=== PATIENT | male | born 1960 | race Caucasian/White ===

== ENCOUNTER 2017-12-23 07:19 | Emergency (ER) | payer OTHER ==
[2017-12-23] MEDS: methylPREDNISolone INJ 125 MG/2 ML VIAL (J2930) IM (07:51)
[2017-12-23] MEDS: ALBUTEROL SULFATE 2.5 MG/0.5 ML INH NEB SOLN NEB ×2 (07:56→07:57)
== END 2017-12-23 08:39 | disposition home or self-care (01) ==
LOC: M ED 07:19
DX: J06.9 Acute upper respiratory infection, unspecified (principal); Z91.040 Latex allergy status; Z88.8 Allergy status to other drugs, medicaments and biological substances; Z88.0 Allergy status to penicillin; Z88.2 Allergy status to sulfonamides
CPT/HCPCS: J2930

== ENCOUNTER 2018-01-06 21:18 | Inpatient (IN) | payer OTHER ==
[2018-01-06] MEDS: ALBUTEROL SULFATE 2.5 MG/0.5 ML INH NEB SOLN NEB ×2 (23:07→23:40)
[2018-01-07] MEDS: methylPREDNISolone INJ 125 MG/2 ML VIAL (J2930) IV (00:37)
[2018-01-07] MEDS: ALBUTEROL SULFATE 2.5 MG/0.5 ML INH NEB SOLN NEB (00:37)
[2018-01-07] MEDS: diphenhydrAMINE INJ 50MG/ML VIAL (J1200) IV (00:38)
[2018-01-07] MEDS ORDERED: PERCOCET 5MG/325MG TAB PO (03:15)
[2018-01-07] MEDS ORDERED: ONDANSETRON 4MG/2ML VIAL (J2405) IV (03:15)
[2018-01-07] MEDS ORDERED: BISACODYL 10 MG SUPP PR (03:15)
[2018-01-07] MEDS ORDERED: MORPHINE 4 MG/ML 1ML VIAL/SYRINGE (J2270) IV (03:15)
[2018-01-07] MEDS ORDERED: ACETAMINOPHEN TAB 650MG DOSE (2X325MG) PO (03:15)
[2018-01-07 05:01] LABS: HEMATOCRIT 44.5 % (42.0-52.0); HEMOGLOBIN 15.2 g/dl (13.5-17.5); MEAN CORPUSCULAR HEMOGLOBIN 29.9 pg (27.0-33.0); MEAN CORPUSCULAR HGB CONC 34.2 g/dl (32.0-36.5); MEAN CORPUSCULAR VOLUME 87.6 fl (80.0-96.0); PLATELET COUNT, AUTOMATED 256 10^3/uL (150-450); RED BLOOD COUNT 5.08 10^6/uL (4.30-6.10); RED CELL DISTRIBUTION WIDTH 12.7 % (11.5-14.5); WHITE BLOOD COUNT 11.4 10^3/uL (4.0-10.0)
[2018-01-07] MEDS: NS 1,000 ML IV ×3 (05:16→23:01)
[2018-01-07] MEDS: HEPARIN SOD (PORCINE) 5000 UNITS/ML VIAL SC ×3 (05:17→21:19)
[2018-01-07 05:20] LABS: ANION GAP 9 MEQ/L (8-16); BLOOD UREA NITROGEN 13 MG/DL (7-18); CALCIUM LEVEL 8.4 MG/DL (8.5-10.1); CARBON DIOXIDE LEVEL 24 MEQ/L (21-32); CHLORIDE LEVEL 110 MEQ/L (98-107); CREATININE FOR GFR 0.88 MG/DL (0.70-1.30); GLOMERULAR FILTRATION RATE > 60.0 (>56); GLUCOSE, FASTING 137 MG/DL (70-100); MAGNESIUM LEVEL 2.3 MG/DL (1.8-2.4); POTASSIUM SERUM 3.7 MEQ/L (3.5-5.1); SODIUM LEVEL 143 MEQ/L (136-145)
[2018-01-07 05:23] LABS: CK-MB VALUE MASS 4.1 NG/ML (<3.6); CPK CREATINE PHOSPHOKINASE 254 U/L (39-308); MB/CK RELATIVE INDEX 1.61 (< OR =4); TROPONIN I < 0.02 NG/ML (< 0.10)
[2018-01-07] MEDS ORDERED: IPRATROPIUM 0.5MG/ALBUTEROL 2.5MG INH SOL UD 3ML (DUONEB)(J7620) NEB (06:45)
[2018-01-07] MEDS: methylPREDNISolone INJ 40 MG/1 ML VIAL (J2920) IV ×3 (08:30→23:45)
[2018-01-07] MEDS: SENOKOT S TAB PO ×2 (08:30→21:18)
[2018-01-07] MEDS: PANTOPRAZOLE 40MG TAB (PROTONIX) PO (08:30)
[2018-01-07 09:18] LABS: TROPONIN I < 0.02 NG/ML (< 0.10)
[2018-01-07 09:27] LABS: D-DIMER QUANT < 270.0 ng/ml (<500)
[2018-01-07 12:29] LABS: TROPONIN I < 0.02 NG/ML (< 0.10)
[2018-01-07 12:30] LABS: CK-MB VALUE MASS 3.3 NG/ML (<3.6); CPK CREATINE PHOSPHOKINASE 221 U/L (39-308); MB/CK RELATIVE INDEX 1.49 (< OR =4)
[2018-01-07 20:05] LABS: CPK CREATINE PHOSPHOKINASE 180 U/L (39-308); TROPONIN I < 0.02 NG/ML (< 0.10)
[2018-01-07 20:18] LABS: CK-MB VALUE MASS 2.4 NG/ML (<3.6); MB/CK RELATIVE INDEX 1.33 (< OR =4)
[2018-01-08] MEDS: NS 1,000 ML IV ×2 (03:53→09:04)
[2018-01-08] MEDS: HEPARIN SOD (PORCINE) 5000 UNITS/ML VIAL SC (05:45)
[2018-01-08 06:22] LABS: HEMATOCRIT 42.1 % (42.0-52.0); HEMOGLOBIN 14.2 g/dl (13.5-17.5); MEAN CORPUSCULAR HGB CONC 33.7 g/dl (32.0-36.5); MEAN CORPUSCULAR VOLUME 88.8 fl (80.0-96.0); PLATELET COUNT, AUTOMATED 260 10^3/uL (150-450); RED BLOOD COUNT 4.74 10^6/uL (4.30-6.10); RED CELL DISTRIBUTION WIDTH 13.1 % (11.5-14.5); WHITE BLOOD COUNT 17.5 10^3/uL (4.0-10.0)
[2018-01-08 06:45] LABS: ANION GAP 7 MEQ/L (8-16); BLOOD UREA NITROGEN 15 MG/DL (7-18); CALCIUM LEVEL 8.5 MG/DL (8.5-10.1); CARBON DIOXIDE LEVEL 25 MEQ/L (21-32); CHLORIDE LEVEL 112 MEQ/L (98-107); CREATININE FOR GFR 0.78 MG/DL (0.70-1.30); GLOMERULAR FILTRATION RATE > 60.0 (>56); GLUCOSE, FASTING 115 MG/DL (70-100); MAGNESIUM LEVEL 2.3 MG/DL (1.8-2.4); POTASSIUM SERUM 4.3 MEQ/L (3.5-5.1); SODIUM LEVEL 144 MEQ/L (136-145)
[2018-01-08] MEDS: SENOKOT S TAB PO (09:04)
[2018-01-08] MEDS: methylPREDNISolone INJ 40 MG/1 ML VIAL (J2920) IV (09:04)
[2018-01-08] MEDS: PANTOPRAZOLE 40MG TAB (PROTONIX) PO (09:04)
[2018-01-11 03:02] LABS: PROCALCITONIN 0.05 ng/mL (0.00-0.08)
[2018-01-11 03:02] LABS: PROCALCITONIN 0.05 ng/mL (0.00-0.08)
== END 2018-01-08 11:00 | disposition home or self-care (01) | DRG 203 ==
LOC: M ED INP 01-07 03:01 → M MSPAV 01-07 04:40 → M ED 21:18
DX: J45.901 Unspecified asthma with (acute) exacerbation (principal); Z79.899 Other long term (current) drug therapy; Z88.0 Allergy status to penicillin; Z88.2 Allergy status to sulfonamides; Z88.8 Allergy status to other drugs, medicaments and biological substances; Z91.040 Latex allergy status

== ENCOUNTER → 2018-05-09 | Outpatient (CLI) | payer OTHER ==
[~2018-05-09] MED LIST: METHACHOLINE KIT (J7674) INH
== END ==
LOC: M CARPUL 07:33
DX: R05 Cough (principal)
CPT/HCPCS: J7674

== ENCOUNTER → 2018-07-09 | Outpatient (CLI) | payer OTHER ==
[2018-07-14 00:06] LABS: D001-IgE D pteronyssinus <0.10 kU/L (Class 0); E001-IgE Cat Epith/Dander < 0.10 kU/L (Class 0); E005-IgE Dog Dander < 0.10 kU/L (Class 0); G002-IgE Bermuda Grass < 0.10 kU/L (Class 0); G008-IgE Kentucky Bluegrass < 0.10 kU/L (Class 0); M001-IgE Penicillium chrysogen < 0.10 kU/L (Class 0); M002 IgE Cladosporium herbaru < 0.10 kU/L (Class 0); M003 IgE Aspergillus fumigatu < 0.10 kU/L (Class 0); M006-IgE Alternaria alternata < 0.10 kU/L (Class 0); T001-IgE Maple/Box Elder < 0.10 kU/L (Class 0); T003-IgE Common Silver Birch 0.53 kU/L (Class I); T006-IgE Cedar, Mountain < 0.10 kU/L (Class 0); T007-IgE Oak, White < 0.10 kU/L (Class 0); T008-IgE Elm, American < 0.10 kU/L (Class 0); T015-IgE Ash, White < 0.10 kU/L (Class 0); T041-IgE Hickory, White < 0.10 kU/L (Class 0); T070-IgE White Mulberry < 0.10 kU/L (Class 0); W001-IgE Ragweed, Short < 0.10 kU/L (Class 0); W009-IgE Plantain, English < 0.10 kU/L (Class 0); W014-IgE Pigweed, Rough < 0.10 kU/L (Class 0); W018-IgE Sheep Sorrel < 0.10 kU/L (Class 0)
== END ==
LOC: M SMT 14:51
DX: J45.21 Mild intermittent asthma with (acute) exacerbation (principal)
CPT/HCPCS: 82785

== ENCOUNTER → 2018-07-10 | Outpatient (REF) | payer OTHER ==
[2018-07-10 17:59] LABS: BASO # 0.1 10^3/uL (0.0-0.2); BASO % 1.3 % (0.0-1.0); EOS # 0.9 10^3/uL (0.0-0.50); EOS % 8.8 % (0.0-3.0); HEMATOCRIT 46.5 % (42.0-52.0); HEMOGLOBIN 15.4 g/dl (13.5-17.5); IMMATURE GRANULOCYTE % 0.6 % (0-3.0); LYMPH # 2.9 10^3/uL (1.5-4.5); LYMPH % 27.1 % (24.0-44.0); MEAN CORPUSCULAR HGB CONC 33.1 g/dl (32.0-36.5); MEAN CORPUSCULAR VOLUME 90.5 fl (80.0-96.0); MONO # 0.6 10^3/uL (0.0-0.8); MONO % 5.9 % (0.0-5.0); NEUTROPHILS % 56.3 % (36.0-66.0); PLATELET COUNT, AUTOMATED 279 10^3/uL (150-450); RED BLOOD COUNT 5.14 10^6/uL (4.30-6.10); RED CELL DISTRIBUTION WIDTH 12.7 % (11.5-14.5); WHITE BLOOD COUNT 10.6 10^3/uL (4.0-10.0)
== END ==
LOC: M LABSMT 17:00
DX: J45.21 Mild intermittent asthma with (acute) exacerbation (principal)
CPT/HCPCS: 85025

== ENCOUNTER 2018-08-27 12:39 | Emergency (ER) | payer OTHER ==
[~2018-08-27] VITALS: Ht 175.3 cm; Wt 95.5 kg
[~2018-08-27 12:39] MED LIST changes: +GUAISYP4 PO; +GUAISYP9 PO; -METHACHOLINE KIT (J7674) INH; +MUCI600T37 PO; +PRED10TA2 PO; +PRED20TA PO; +PROAAER10 INH; +TESS100C PO; +ZITHTAB PO; +pro air
[2018-08-27] MEDS ORDERED: VENTAER (12:54)
[2018-08-27] MEDS ORDERED: FLUT22IN (12:54)
[2018-08-27 14:46] LABS: BASO # 0.1 10^3/uL (0.0-0.2); BASO % 1.2 % (0.0-1.0); EOS # 0.4 10^3/uL (0.0-0.50); EOS % 3.4 % (0.0-3.0); HEMATOCRIT 46.5 % (42.0-52.0); LYMPH # 2.9 10^3/uL (1.5-4.5); LYMPH % 24.2 % (24.0-44.0); MEAN CORPUSCULAR HEMOGLOBIN 30.4 pg (27.0-33.0); MEAN CORPUSCULAR HGB CONC 34.4 g/dl (32.0-36.5); MEAN CORPUSCULAR VOLUME 88.4 fl (80.0-96.0); MONO # 0.7 10^3/uL (0.0-0.8); MONO % 5.7 % (0.0-5.0); NEUTROPHILS # 7.8 10^3/uL (1.8-7.7); NEUTROPHILS % 64.9 % (36.0-66.0); PLATELET COUNT, AUTOMATED 310 10^3/uL (150-450); RED BLOOD COUNT 5.26 10^6/uL (4.30-6.10); WHITE BLOOD COUNT 12.1 10^3/uL (4.0-10.0)
[2018-08-27 14:58] LABS: BLOOD UREA NITROGEN 11 MG/DL (7-18); CALCIUM LEVEL 9.1 MG/DL (8.5-10.1); CARBON DIOXIDE LEVEL 27 MEQ/L (21-32); CHLORIDE LEVEL 105 MEQ/L (98-107); CREATININE FOR GFR 0.74 MG/DL (0.70-1.30); GLOMERULAR FILTRATION RATE > 60.0 (>56); GLUCOSE, FASTING 86 MG/DL (70-100); POTASSIUM SERUM 4.2 MEQ/L (3.5-5.1); SODIUM LEVEL 140 MEQ/L (136-145)
[2018-08-27 14:59] LABS: INR 0.93; PROTHROMBIN TIME 12.6 SECONDS (12.1-14.4)
[2018-08-27 15:00] LABS: PARTIAL THROMBOPLASTIN TIME 29.5 SECONDS (25.4-37.6)
[2018-08-27 15:02] LABS: D-DIMER QUANT 270.29 ng/ml (<500)
[2018-08-27] MEDS ORDERED: ISOVUE-370 76% 100ML VIAL (Q9967) As Ordered ONE (15:28)
--- NOTE | 2018-08-27 16:25 | REP ---
CT pulmonary angiogram: With IV contrast. History: Coughing up blood. Comparison studies: February 21, 2012. Contrast dose: 75 mL of Isovue [address] technique: Helical scanning is acquired and overlapping 1.5 mm and contiguous 3 mm axial images are reformatted. In addition, maximum intensity projection and multiplanar re-formation images are generated in sagittal and coronal imaging projections. CT pulmonary angiographic findings: There is good opacification of the pulmonary arterial tree. There is no CT evidence of pulmonary embolism. Thoracic aorta enhances homogeneously without evidence of aneurysm or dissection. There are granulomatous lymph node calcifications in the right hilus and a granulomatous calcification is noted in the right lower lobe of the lung. No pleural or pericardial effusion is seen. No hilar or mediastinal mass or adenopathy is observed. No adrenal lesion is seen. There are granulomatous calcifications in the spleen. There is a 2.4 cm ground-glass opacity in the right upper lobe. This measures 1.6 x 1.5 cm in its other dimensions. This is a new finding. No other infiltrate is seen in the lung matthews. No other noncalcified nodule is seen. There is discoid atelectasis in the lingula at the left lung base. No bony destructive lesion is seen. Impression: Oval-shaped 2.4 cm area of ground glass opacity right upper lobe. Focal infiltrate versus neoplastic lesion. No CT evidence of pulmonary embolus. Suggest short interval follow-up. If persists post treatment, pulmonary medicine evaluation would be warranted. Electronically Signed by Abdirashid Wright MD 08/27/2018 06:16 P
[2018-08-27] MEDS ORDERED: AZIT-12 PO (16:41)
[2018-08-27] MEDS ORDERED: AZITHROMYCIN 250 MG TAB PO ONE (16:45)
[2018-08-27 17:10] VITALS: BP 143/82
--- NOTE | 2018-08-28 11:46 | ED PDOC ---
Post-Departure Follow-Up kassidy lopes and ilana faxed formal report of ct chest for fu Kian Tyson MD Aug 28, 2018 11:46
== END 2018-08-27 17:21 | disposition home or self-care (01) ==
LOC: M ED 12:39
DX: J18.9 Pneumonia, unspecified organism (principal); R91.8 Other nonspecific abnormal finding of lung field; J01.90 Acute sinusitis, unspecified; J45.909 Unspecified asthma, uncomplicated; Z79.51 Long term (current) use of inhaled steroids; Z88.8 Allergy status to other drugs, medicaments and biological substances; Z91.040 Latex allergy status; Z88.0 Allergy status to penicillin
CPT/HCPCS: 71275; 80048; 85025; 85379; 85610; 85730; 86850; 86900; 86901; 99284; Q9967

== ENCOUNTER → 2018-11-24 | Outpatient (CLI) | payer OTHER ==
[~2018-11-24] MED LIST changes: +AZIT-12 PO; +FLUT22IN; +VENTAER
== END ==
LOC: M ADAMS 08:28
PROVIDERS: ATTEND Physician Assistant
DX: Z12.5 Encounter for screening for malignant neoplasm of prostate (principal); Z13.220 Encounter for screening for lipoid disorders

== ENCOUNTER → 2018-11-24 | Outpatient (REF) | payer OTHER ==
[2018-11-24 17:47] LABS: ALBUMIN 4.1 GM/DL (3.2-5.2); ALT/SGPT 40 U/L (12-78); BILIRUBIN,TOTAL 0.7 MG/DL (0.2-1.0); BLOOD UREA NITROGEN 13 MG/DL (7-18); CALCIUM LEVEL 8.3 MG/DL (8.5-10.1); CARBON DIOXIDE LEVEL 30 MEQ/L (21-32); CHLORIDE LEVEL 107 MEQ/L (98-107); CHOLESTEROL LEVEL 215 MG/DL (<200); CHOLESTEROL RISK RATIO 3.839 (<5); CREATININE FOR GFR 0.86 MG/DL (0.70-1.30); GLOMERULAR FILTRATION RATE > 60.0 (>56); GLUCOSE, FASTING 79 MG/DL (70-100); HDL CHOLESTEROL 56 MG/DL (>40); LDL CHOLESTEROL 139 MG/DL (<100); NON-HDL-C 159 MG/DL; POTASSIUM SERUM 4.4 MEQ/L (3.5-5.1); SODIUM LEVEL 143 MEQ/L (136-145); TOTAL PROTEIN 6.9 GM/DL (6.4-8.2); TRIGLYCERIDES LEVEL 98 MG/DL (<150)
== END ==
LOC: M SFHCADAM 08:19
PROVIDERS: ATTEND Physician Assistant
DX: Z12.5 Encounter for screening for malignant neoplasm of prostate (principal); Z13.220 Encounter for screening for lipoid disorders
CPT/HCPCS: 80053; 80061; G0103

== ENCOUNTER → 2018-12-03 | Outpatient (CLI) | payer OTHER ==
--- NOTE | 2018-12-04 09:15 | REP ---
CT chest without contrast: History: Abnormal lung field findings. Comparison study August 27, 2018. There is a comparison chest CT from July 22, 2012 also reviewed. Most recent prior chest CT study showed a ground-glass opacity in the right upper lobe 2.4 cm in greatest diameter. CT findings: The recently noted ground-glass opacity in the right upper lobe has resolved consistent with a transient area of parenchymal inflammation. There is mild linear fibrosis in the lingula and left lower lobe at the bases. A granulomatous calcification is seen in the right lower lobe just above the diaphragm unchanged. There are granulomatous lymph node calcifications in the right hilus as before. No hilar or mediastinal mass or adenopathy is seen. There is vascular calcification along the course of the left coronary artery. No adrenal lesion is seen. An accessory splenule is noted. There are a few small bowel mesenteric lymph nodes at the upper range of normal in size in the left upper abdomen. The largest of these measures 11 mm in short axis dimension by [address] studies of the chest do not extend this low into the abdomen. There is a low density lesion consistent with a cyst in the right mid kidney 2.3 cm in diameter. Granulomatous calcifications are seen in the spleen. Impression: Old granulomatous changes. Previously noted ground-glass opacity has resolved. There are slightly prominent small bowel mesenteric lymph nodes in the upper abdomen. A low-density area is seen in the right kidney consistent with a cyst. Consider CT study of the abdomen and pelvis. Electronically Signed by Abdirashid Wright MD 12/04/2018 09:21 A
== END ==
LOC: M RAD 17:59
PROVIDERS: ATTEND Internal Medicine Pulmonary Disease
DX: R91.8 Other nonspecific abnormal finding of lung field (principal)

== ENCOUNTER → 2019-02-28 | Outpatient (CLI) | payer OTHER ==
[~2019-02-28] MED LIST changes: +ISOVUE-370 76% 100ML VIAL (Q9967) As Ordered ONE
--- NOTE | 2019-02-28 16:30 | REP ---
CT of the abdomen without IV contrast, followed by CT of the abdomen and pelvis with IV contrast, there is no bowel contrast: There are no comparison studies. The visualized lower lung matthews are unremarkable. There are numerous mesenteric nodes many of which are normal size and some of which are enlarged measuring up to 11 mm diameter. There is no ascites. There is no periaortic/retroperitoneal adenopathy. There is no pelvic adenopathy. There is no pelvic ascites. The hepatic parenchyma, gallbladder, pancreas, spleen, adrenals, kidneys and abdominal aorta are unremarkable. The bowel is unremarkable except for C sigmoid colon diverticulosis without diverticulitis . Pelvis: The appendix is unremarkable. The bladder is unremarkable. The pelvic bowel loops are unremarkable except for sigmoid diverticulosis without diverticulitis. There is no ascites. Impression: There are numerous mesenteric nodes as described. There are no retroperitoneal or pelvic nodes. There is sigmoid colon diverticulosis without diverticulitis. Otherwise, essentially negative CT study of the abdomen and pelvis. Electronically Signed by Keven Ellis MD 02/28/2019 04:22 P
== END ==
LOC: M RAD 14:56
PROVIDERS: ATTEND Physician Assistant
DX: R59.1 Generalized enlarged lymph nodes (principal)

== ENCOUNTER 2019-04-16 08:02 | Day surgery (SDC) | payer OTHER ==
[~2019-04-16] VITALS: Ht 175.3 cm; Wt 95.2 kg
[~2019-04-16 08:02] MED LIST changes: -FLUT22IN; +FLUT22IN INH; -ISOVUE-370 76% 100ML VIAL (Q9967) As Ordered ONE; +NS 1,000 ML IV ONE; -VENTAER; +VENTAER INH
[2019-04-16] MEDS ORDERED: PROPOFOL 200 MG/20 ML VIAL As Ordered ONE (08:48)
[2019-04-16] MEDS ORDERED: LIDOCAINE 2% INJ 100 MG/5 ML SDV (FOR ANES.) As Ordered ONE (08:48)
--- NOTE | 2019-04-16 09:20 | ROOR ---
Patient Name: Kory Cotto Procedure Date: 04/16/2019 8:59 AM Date of : 1960 Age: 58 Room: [facility] Gender: Male Note Status: Finalized Procedure: Colonoscopy Indications: Abnormal CT of the GI tract Providers: DO Nolan Beaver MD: DANIEL Murillo Requesting Provider: Medicines: Propofol per Anesthesia Complications: No immediate complications. Procedure: Pre-Anesthesia Assessment: - Prior to the procedure, a History and Physical was performed, and patient medications and allergies were reviewed. The patient is competent. The risks and benefits of the procedure and the sedation options and risks were discussed with the patient. All questions were answered and informed consent was obtained. Patient identification and proposed procedure were verified by the physician, the nurse, the anesthesiologist and the certified technician in the endoscopy suite. Mental Status Examination: alert and oriented. Airway Examination: normal oropharyngeal airway and neck mobility. Respiratory Examination: clear to auscultation. CV Examination: normal. Prophylactic Antibiotics: The patient does not require prophylactic antibiotics. Prior Anticoagulants: The patient has taken no previous anticoagulant or antiplatelet agents. ASA Grade Assessment: II - A patient with mild systemic disease. After reviewing the risks and benefits, the patient was deemed in satisfactory condition to undergo the procedure. The anesthesia plan was to use monitored anesthesia care (MAC). Immediately prior to administration of medications, the patient was re-assessed for adequacy to receive sedatives. The heart rate, respiratory rate, oxygen saturations, blood pressure, adequacy of pulmonary ventilation, and response to care were monitored throughout the procedure. The physical status of the patient was re-assessed after the procedure. The Colonoscope was introduced through the anus and advanced to the cecum, identified by appendiceal orifice and ileocecal valve. The colonoscopy was performed without difficulty. The patient tolerated the procedure well. Findings: A few small-mouthed diverticula were found in the sigmoid colon. Internal hemorrhoids were found during retroflexion. The hemorrhoids were Grade I (internal hemorrhoids that do not prolapse). The exam was otherwise without abnormality on direct and retroflexion views. Impression: - Diverticulosis in the sigmoid colon. - Internal hemorrhoids. - The examination was otherwise normal on direct and retroflexion views. - No specimens collected. Recommendation: - Patient has a contact number available for emergencies. The signs and symptoms of potential delayed complications were discussed with the patient. Return to normal activities tomorrow. Written discharge instructions were provided to the patient. - Repeat colonoscopy in 5-10 years for screening purposes. - Return to my office PRN. Keven Vargas DO 04/16/2019 9:19:52 AM Electronically signed by Keven Vargas DO Number of Addenda: 0 Note Initiated On: 04/16/2019 8:59 AM Estimated Blood Loss: Estimated blood loss: none.
[2019-04-16 09:57] VITALS: BP 132/84
== END 2019-04-16 09:58 | disposition home or self-care (01) ==
LOC: M OPP 08:02
PROVIDERS: ATTEND Surgery
DX: R93.3 Abnormal findings on diagnostic imaging of other parts of digestive tract (principal); K64.0 First degree hemorrhoids; K57.30 Diverticulosis of large intestine without perforation or abscess without bleeding; Z88.0 Allergy status to penicillin; Z88.2 Allergy status to sulfonamides; Z91.040 Latex allergy status

== ENCOUNTER → 2021-01-27 | Outpatient (REF) | payer OTHER ==
[~2021-01-27] MED LIST changes: -NS 1,000 ML IV ONE
[2021-01-27 17:24] LABS: HEMATOCRIT 48.3 % (42.0-52.0); MEAN CORPUSCULAR HEMOGLOBIN 29.5 pg (27.0-33.0); MEAN CORPUSCULAR HGB CONC 33.1 g/dl (32.0-36.5); PLATELET COUNT, AUTOMATED 283 10^3/uL (150-450); RED BLOOD COUNT 5.43 10^6/uL (4.30-6.10); WHITE BLOOD COUNT 9.5 10^3/uL (4.0-10.0)
[2021-01-27 17:52] LABS: ALBUMIN 4.2 GM/DL (3.2-5.2); ALT/SGPT 43 U/L (12-78); BILIRUBIN,TOTAL 0.9 MG/DL (0.2-1.0); BLOOD UREA NITROGEN 14 MG/DL (7-18); CALCIUM LEVEL 8.7 MG/DL (8.8-10.2); CARBON DIOXIDE LEVEL 25 MEQ/L (21-32); CHLORIDE LEVEL 106 MEQ/L (98-107); CHOLESTEROL LEVEL 208 MG/DL (<200); CHOLESTEROL RISK RATIO 3.781 (<5); CREATININE FOR GFR 0.82 MG/DL (0.70-1.30); GLOMERULAR FILTRATION RATE > 60.0 (>49); GLUCOSE, FASTING 77 MG/DL (70-100); HDL CHOLESTEROL 55 MG/DL (>40); LDL CHOLESTEROL 140 MG/DL (<100); NON-HDL-C 153 MG/DL; POTASSIUM SERUM 4.2 MEQ/L (3.5-5.1); SODIUM LEVEL 138 MEQ/L (136-145); TOTAL PROTEIN 7.1 GM/DL (6.4-8.2); TRIGLYCERIDES LEVEL 64 MG/DL (<150)
== END ==
LOC: M SFHCADAM 15:53
PROVIDERS: ATTEND Physician Assistant
DX: J45.40 Moderate persistent asthma, uncomplicated (principal); E78.2 Mixed hyperlipidemia; Z12.5 Encounter for screening for malignant neoplasm of prostate; Z13.1 Encounter for screening for diabetes mellitus
CPT/HCPCS: 80053; 80061; 85027; G0103; G0463

== ENCOUNTER 2025-03-25 08:36 | Emergency (ER) | payer MEDICARE, OTHER ==
[~2025-03-25] VITALS: Ht 177.8 cm; Wt 101.0 kg
[2025-03-25 12:22] VITALS: BP 143/81; TEMP 97.2; O2SAT 98
== END 2025-03-25 12:26 | disposition home or self-care (01) ==
LOC: M ED 08:36
DX: S60.945A Unspecified superficial injury of left ring finger, initial encounter (principal); Y92.9 Unspecified place or not applicable; Y93.9 Activity, unspecified; Y99.9 Unspecified external cause status; W01.0XXA Fall on same level from slipping, tripping and stumbling without subsequent striking against object, initial encounter; J45.909 Unspecified asthma, uncomplicated; Z88.0 Allergy status to penicillin; Z88.2 Allergy status to sulfonamides; Z88.8 Allergy status to other drugs, medicaments and biological substances; Z91.040 Latex allergy status; Z79.51 Long term (current) use of inhaled steroids; Z79.899 Other long term (current) drug therapy

== ENCOUNTER → 2025-05-01 | Outpatient (CLI) | payer MEDICARE | LOC: M SOG 07:20 | PROVIDERS: ATTEND Physician Assistant | DX: M79.641 Pain in right hand (principal) ==

== ENCOUNTER 2025-07-13 15:09 | Emergency (ER) | payer MEDICARE, OTHER ==
[~2025-07-13] VITALS: Ht 175.3 cm; Wt 103.1 kg
[2025-07-13 17:07] VITALS: BP 125/80; TEMP 97.3; O2SAT 96
== END 2025-07-13 17:21 | disposition home or self-care (01) ==
LOC: M ED 15:09
DX: S00.03XA Contusion of scalp, initial encounter (principal); W01.198A Fall on same level from slipping, tripping and stumbling with subsequent striking against other object, initial encounter; J45.909 Unspecified asthma, uncomplicated; M50.30 Other cervical disc degeneration, unspecified cervical region; Z88.0 Allergy status to penicillin; Z79.52 Long term (current) use of systemic steroids; Z79.899 Other long term (current) drug therapy; Y92.009 Unspecified place in unspecified non-institutional (private) residence as the place of occurrence of the external cause; Y93.89 Activity, other specified; Y99.9 Unspecified external cause status